=== PATIENT | male | born 1975 | race Caucasian/White ===

== ENCOUNTER 2021-12-02 02:32 | Emergency (ER) | payer SELFPAY ==
[~2021-12-02] VITALS: Ht 177.8 cm; Wt 80.0 kg
[2021-12-02] MEDS ORDERED: ASPIRIN 81MG TABLET PO ONE (03:15)
[2021-12-02] MEDS: NITROGLYCERIN 0.4MG TABLET SL SL PRN ×2 (03:22→03:48)
[2021-12-02 03:34] LABS: BASOPHILS % 0.7 % (0.0-2.0); EOSINOPHILS % 1.6 % (0.0-5.0); HEMATOCRIT. 40.5 % (42.0-52.0); HEMOGLOBIN. 13.6 g/dL (14.0-18.0); LYMPHOCYTES % 8.8 % (20.0-50.0); MEAN CORPUSCULAR VOLUME 88.9 fL (80.0-94.0); MEAN PLATELET VOLUME 8.1 fl (7.4-10.4); MONOCYTES % 7.7 % (2.0-8.0); NEUTROPHILS % 81.2 % (40.0-76.0); PLATELET 296 x1000/uL (130-400); RED BLOOD CELL COUNT 4.55 mill/uL (4.7-6.1); RED CELL DISTRIBUTION WIDTH 13.3 % (11.6-14.6)
[2021-12-02 03:37] LABS: CHLORIDE 106 mEq/L (98-107)
[2021-12-02 03:41] LABS: ETHANOL BLOOD < 10 mg/dL
[2021-12-02 05:30] VITALS: BP 148/90
== END 2021-12-02 06:50 | disposition home or self-care (01) ==
LOC: ER 02:32
DX: R07.89 Other chest pain (principal); F15.10 Other stimulant abuse, uncomplicated; I10 Essential (primary) hypertension; I25.2 Old myocardial infarction; Z88.0 Allergy status to penicillin
CPT/HCPCS: 36415; 71045; 80053; 80320; 83880; 84484; 85025; 93005; 99285; G0480